=== PATIENT | male | born 1965 | race Caucasian/White ===

== ENCOUNTER 2018-03-22 12:27 | Observation (INO) | payer SELFPAY ==
[2018-03-22 13:12] LABS: #Eosinphils 0.2 thou/uL (0.0-0.7); #Lymphocytes 2.3 thou/uL (1.20-3.40); #Monocytes 0.8 thou/uL (0.11-0.59); #Neutrophils 6.9 thou/uL (1.40-6.50); %Lymphocytes 22.1 % (21.0-51.0); %Monocytes 8.2 % (0.0-10.0); %Neutrophils 67.8 % (42.0-75.0); Hemoglobin 15.9 g/dL (14.0-18.0); Mean Corpuscular HGB CONC 34.8 g/dL (32.0-36.0); Mean Corpuscular Hemoglobin 31.3 pg (27.0-31.0); Mean Platelet Volume 6.8 fL (7.4-10.4); Platelet Count 248 thou/uL (130-400); RBC Distribution Width 12.2 % (11.5-14.5); Red Blood Cell (RBC) Count 5.07 mill/uL (4.70-6.10); White Blood Cell (WBC) Count 10.2 thou/uL (4.8-10.8)
--- NOTE | 2018-03-22 13:18 | RAD ---
AP VIEW CHEST: Date: 03/22/18 HISTORY: Chest pain. FINDINGS: AP view of chest obtained and demonstrates EKG leads seen over the chest. The lungs are well aerated. No evidence of active intrathoracic disease seen. No evidence of effusions, pneumonia, or pneumothor ax seen. IMPRESSION: Unremarkable AP view chest. POS: [facility]
[2018-03-22 13:27] LABS: ALT (SGPT) 48 U/L (8-55); AST (SGOT) 30 U/L (5-34); Albumin 4.2 g/dL (3.5-5.0); Alkaline Phosphatase 138 U/L (40-150); Anion Gap 13 mmol/L (10-20); BUN (Urea Nitrogen) 22 mg/dL (8.4-25.7); Bilirubin, Total 0.3 mg/dL (0.2-1.2); CK (CPK) 137 U/L (30-200); Calc. Creatinine Clearance 0 mL/min (70-130); Calcium 9.5 mg/dL (7.8-10.44); Carbon Dioxide 25 mmol/L (22-29); Chloride 105 mmol/L (98-107); Estimated GFR-MDRD 71; Globulin 3.2 g/dL (2.4-3.5); Glucose 151 mg/dL (70-105); Protein, Total 7.4 g/dL (6.0-8.3); Sodium 139 mmol/L (136-145)
[2018-03-22 13:30] LABS: CKMB 1.5 ng/mL (0-6.6); Troponin I Less than 0.010 ng/mL (< 0.028)
[2018-03-22] MEDS ORDERED: Nitroglycerin 0.4 MG TAB (25 Tab Bottle) SL PRN (16:06)
[2018-03-22] MEDS ORDERED: Acetaminophen 325 MG TAB PO PRN (16:06)
[2018-03-22] MEDS ORDERED: Ondansetron ORAL SOLN. 4 MG/5 ML UDCUP PO PRN (16:06)
--- NOTE | 2018-03-22 16:17 | PDOC.FPRHP ---
- History of Present Illness Chief Complaint: SOB & Chest Pain History of Present Illness: Mr Sams is a 52yo male with pmh of HTN presenting with shortness of breath and chest pain for 1 month. Over the last month he has had sharp chest pain and diaphoresis with exertion 5 times. Pain radiates to his neck from his sternum and resolves with rest. Shortness of breath is also with exertion and over the last month has taken progressively longer to resolve with rest. He also feels severely fatigued after these episodes. He now has SOB with no activity. Endorses orthopnea and Paroxysmal nocturnal dyspnea. Sleeps in the recliner with a pillow behind him. Reports 40lb wt gain in the last year do to poor diet. Endorses some leg swelling. He went to [facility] in [place] 03/13 for same symptoms and 03/14 he went to [facility]. There, they diagnosed him with HTN and sent him home on Lisinopril 10mg and Lasix 20mg. Denies fever, chills, cough, vomiting. ED Course: EKG- NSR, CXR- no acute abnormalities. 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 Smokes 1-1.5pks/day. Denies alcohol use. Past hx of methamphetamine use. - Review of Systems General: reports: weight/appetite/sleep changes (40lb wt gain in last year), fatigue. denies: fever/chills ENT: denies: nasal congestion, rhinorrhea Respiratory: reports: cough, shortness of breath Cardiovascular: reports: chest pain, edema, paroxysmal nocturnal dyspnea, orthopnea. denies: palpitation Gastrointestinal: reports: diarrhea, constipation. denies: nausea, vomiting, abdominal pain Genitourinary: reports: polyuria. denies: incontinence Skin: reports: rashes. denies: lesions Musculoskeletal: denies: pain, swelling Neurological: reports: numbness (in feet). denies: weakness - Vital signs BP: 129/76 HR: 94 RR: 16 Tmax: 97.9 Pox: 93% on RA Wt: 145.15kg - Physical Exam Constitutional: NAD, awake, alert and oriented HEENT: normocephalic and atraumatic, PERRLA, MMM, oropharynx clear Neck: trachea midline, other (JVD present) Heart: RRR, other (distant heart sounds) Lungs: CTAB Abdomen: soft, non-tender, bowel sounds present Musculoskeletal: normal structure, ROM grossly normal Neurological: normal sensation (in feet to light touch) Skin: capillary refill <2 seconds, other (venous stasis present bilateral lower legs) Psychiatric: normal mood and affect, good judgment and insight FMR H&P: Results - Labs Result Diagrams: 03/22/18 12:52 03/22/18 12:52 Lab results: WBC 10.2 thou/uL (4.8-10.8) 03/22/18 12:52 Hgb 15.9 g/dL (14.0-18.0) 03/22/18 12:52 Hct 45.6 % (42.0-52.0) 03/22/18 12:52 MCV 90.0 fL (78.0-98.0) 03/22/18 12:52 Plt Count 248 thou/uL (130-400) 03/22/18 12:52 Neutrophils % 67.8 % (42.0-75.0) 03/22/18 12:52 Sodium 139 mmol/L (136-145) 03/22/18 12:52 Potassium 4.0 mmol/L (3.5-5.1) 03/22/18 12:52 Chloride 105 mmol/L (98-107) 03/22/18 12:52 Carbon Dioxide 25 mmol/L (22-29) 03/22/18 12:52 BUN 22 mg/dL (8.4-25.7) 03/22/18 12:52 Creatinine 1.09 mg/dL (0.6-1.3) 03/22/18 12:52 Glucose 151 mg/dL (70-105) H 03/22/18 12:52 Calcium 9.5 mg/dL (7.8-10.44) 03/22/18 12:52 Total Bilirubin 0.3 mg/dL (0.2-1.2) 03/22/18 12:52 AST 30 U/L (5-34) 03/22/18 12:52 ALT 48 U/L (8-55) 03/22/18 12:52 Alkaline Phosphatase 138 U/L (40-150) 03/22/18 12:52 Creatine Kinase 137 U/L (30-200) 03/22/18 12:52 CK-MB (CK-2) 1.5 ng/mL (0-6.6) 03/22/18 12:52 Serum Total Protein 7.4 g/dL (6.0-8.3) 03/22/18 12:52 Albumin 4.2 g/dL (3.5-5.0) 03/22/18 12:52 - EKG Interpretation EKG: NSR with questionable Q waves in V1-V3 per ED report - Radiology Interpretation Chest x-ray Status: report reviewed by me Additional comment: no acute abnormalities FMR H&P: A/P - Problem List (1) Shortness of breath Current Visit: Yes Status: Acute Code(s): R06.02 - SHORTNESS OF BREATH (2) Stable angina Current Visit: Yes Status: Acute Code(s): I20.8 - OTHER FORMS OF ANGINA PECTORIS (3) Obesity Current Visit: Yes Status: Acute Code(s): E66.9 - OBESITY, UNSPECIFIED (4) Tobacco abuse Current Visit: Yes Status: Acute Code(s): Z72.0 - TOBACCO USE (5) HTN (hypertension) Current Visit: Yes Status: Chronic Code(s): I10 - ESSENTIAL (PRIMARY) HYPERTENSION (6) Chest pain Current Visit: Yes Status: Acute Code(s): R07.9 - CHEST PAIN, UNSPECIFIED (7) Hyperglycemia Current Visit: Yes Status: Acute Code(s): R73.9 - HYPERGLYCEMIA, UNSPECIFIED - Plan 52yo male presents with SOB and chest pain. 1. 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 Suspected CHF - As above 3. HTN - Initial BP 126/76 - Hold lisinopril 10mg for now 4. Tobacco Abuse - Nicotine Patch 21mg - [place] regarding smoking cessation 5. Hx of Methamphetamine use - UDS 6. 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 Pt notes he has recently began experiencing trouble walking longer distances, endorsing CRAWFORD, orthopnea, PND, chest discomfort, lower extremity edema. Pt states his symptoms improve with rest. Pt denies cough, snoring, palpitations, NVD, sick contacts. Pt notes he has visited the ER twice over the last 2 weeks and was discharged home on lisinopril and lasix. He was told he may have an enlarged heart. Pt has a history of tobacco and polysubstance abuse, noting he still smokes 1 ppd. He denies any personal history of heart disease but does endorse a family history. He has not seen a PCP in the last few years. - Pertinent findings Gen: morbidly obese, NAD CV: RRR, somewhat distant heart sounds 2/2 body habitus, no MMR, no displaced PMI, no chest wall TTP Resp: good effort, nonlabored, CTAB Abd: obese, BS+, NTTP Ext: trace edema BL, venous stasis skin changes BL LE - Plan Date/Time: 03/22/18 1616 I, Lloyd Haque MD, PGY-3, have evaluated this patient and agree with findings/ plan as outlined by undergraduate intern resident. Pertinent changes/additions are listed here. 1. Typical chest pain 2/2 stable angina, concerning for suspected CHF -Admit to telemetry observation and rule out ACS. Trend cardiac enzymes. Risk factor work up with BNP, UDS, TSH, A1c, FLP. Start on ASA and place nitro SL PRN. -Pt has HEART score of 4, will work up with stress test in AM. NPO at midnight. -With CRAWFORD, orthopnea, and hx of cardiomegaly, will order TTE. Strict I/O's. -Lovenox for VTE prophylaxis. 2. Suspected CHF -per above. 3. HTN -Normotensive in ER without medication -Pt reportedly takes Lisinopril 10 mg daily at home. Likely restart pending workup and monitoring of BP. 4. Tobacco abuse -Nicotine patch 5. History of polysubstance abuse -UDS FULL code PPx: Lovenox for VTE, no GI indicated disposition: Admit to telemetry observation for anticipated length of stay < 2 midnights. Attending Addendum - Attending Addendum Date/Time: 03/22/182014 I personally evaluated the patient and discussed the management with Dr. Swanson and Dr. Haque I agree with the History, Examination, Assessment and Plan documented above with any addition or exceptions noted below. 52 yo male with CV risk factors presents for chest pain and CRAWFORD evaluation. Will place in obs. CP of typical nature. Occurring with activity. Associated with CRAWFORD. Trend EKG and CE throughout the night. Stress and ECHO in AM. Evaluate other risks factors and treat accordingly. Needs sleep apnea evaluation. SOB/CRAWFORD also appears to be complicated by underlying COPD. Will start trial of breathing treatments. Will need PFTs outpatient. Clara
[2018-03-22 16:26] VITALS: BMI 41.3
[2018-03-22 16:44] LABS: Hemoglobin A1c 5.9 % (4.0-6.0)
[2018-03-22 16:54] LABS: Troponin I Less than 0.010 ng/mL (< 0.028)
[2018-03-22] MEDS: Nicotine 21 MG PATCH TD SCH (17:46)
[2018-03-22 18:54] LABS: Amphetamine Not Detected (NotDetected); Barbiturates Screen Not Detected (NotDetected); Benzodiazepine Screen Not Detected (NotDetected); Cocaine Metabolite Screen Not Detected (NotDetected); Medtox Control Line Valid? VALID (VALID); Medtox Reader # READER 1; Methadone Not Detected (NotDetected); Methamphetamine Not Detected (NotDetected); Opiate Screen Not Detected (NotDetected); Oxycodone Screen Not Detected (NotDetected); Phencyclidine (PCP) Not Detected (NotDetected); THC/Cannabinoid Screen Not Detected (NotDetected); Tricyclic Screen Not Detected (NotDetected)
[2018-03-22 20:14] LABS: Troponin I Less than 0.010 ng/mL (< 0.028)
[2018-03-23 04:53] LABS: Anion Gap 12 mmol/L (10-20); BUN (Urea Nitrogen) 23 mg/dL (8.4-25.7); Calc. Creatinine Clearance 227 mL/min (70-130); Calcium 9.1 mg/dL (7.8-10.44); Carbon Dioxide 27 mmol/L (22-29); Cardiac Risk 5.6 (Less than 4.5); Chloride 105 mmol/L (98-107); Cholesterol 192 mg/dl (< 200 Desired); Estimated GFR-MDRD Greater than 90; Glucose 125 mg/dL (70-105); HDL Cholesterol 34 mg/dL (>60 Neg Risk); LDL Cholesterol, Calculated 122 mg/dL; Potassium 4.1 mmol/L (3.5-5.1); Sodium 140 mmol/L (136-145); Triglycerides 179 mg/dL (Less than 150)
--- NOTE | 2018-03-23 05:29 | PDOC.FM ---
- Subjective Subjective: Mr Sams is a 52yo male who presented with typical chest pain and SOB. Today he is doing well, denies Chest pain, endorses SOB with rest. The duoneb nebulizer last night did not improve his SOB. Also reported the chest pain he experienced over the last month felt "like someone was sitting on my chest." Denies lightheadedness, n/v/d. - Objective MAR Reviewed: Yes Vital Signs & Weight: Vital Signs (12 hours) Temp Pulse Resp BP Pulse Ox 03/23/18 04:10 97.7 F 63 16 123/69 95 03/23/18 00:38 91 L 03/22/18 23:07 98.2 F 77 16 129/60 94 L 03/22/18 21:33 81 12 93 L 03/22/18 20:18 98.7 F 83 20 03/22/18 19:09 98.7 F 83 20 128/63 93 L Weight Weight 144.877 kg I&O: 03/21/18 03/22/18 03/23/18 06:59 06:59 06:59 Intake Total 660 Output Total 525 Balance 135 Result Diagrams: 03/22/18 12:52 03/23/18 04:14 <Madai Swanson - Last Filed: 03/23/18 13:57> - Objective Vital Signs & Weight: Vital Signs (12 hours) Temp Pulse Resp BP Pulse Ox 03/23/18 12:16 97.8 F 74 20 141/67 H 95 Weight Weight 144.877 kg I&O: 03/22/18 03/23/18 03/24/18 06:59 06:59 06:59 Intake Total 660 353 Output Total 525 400 Balance 135 -47 Result Diagrams: 03/22/18 12:52 03/23/18 04:14 <Irvin Lopez - Last Filed: 03/23/18 22:01> Phys Exam - Physical Examination Constitutional: NAD HEENT: moist MMs Respiratory: clear to auscultation bilateral Cardiovascular: RRR Musculoskeletal: pulses present, edema present Neurological: moves all 4 limbs Psychiatric: normal affect, A&O x 3 Skin: cap refill <2 seconds <Madai Swanson - Last Filed: 03/23/18 13:57> Dx/Plan (1) Shortness of breath Code(s): R06.02 - SHORTNESS OF BREATH Status: Acute (2) Stable angina Code(s): I20.8 - OTHER FORMS OF ANGINA PECTORIS Status: Acute (3) Obesity Code(s): E66.9 - OBESITY, UNSPECIFIED Status: Acute (4) Tobacco abuse Code(s): Z72.0 - TOBACCO USE Status: Acute (5) HTN (hypertension) Code(s): I10 - ESSENTIAL (PRIMARY) HYPERTENSION Status: Chronic (6) Chest pain Code(s): R07.9 - CHEST PAIN, UNSPECIFIED Status: Acute (7) Hyperglycemia Code(s): R73.9 - HYPERGLYCEMIA, UNSPECIFIED Status: Acute - Plan Plan: 52yo male presents with SOB and chest pain. 1. 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 Will need PFTs outpatient. - Cont Duonebs PRN - Consulted Cardiology ([facility]) 2. Suspected CHF - As above 3. HTN - Initial BP 126/76 - Hold lisinopril 10mg for now 4. Tobacco Abuse - Nicotine Patch 21mg - [place] regarding smoking cessation 5. Hx of Methamphetamine use - UDS neg 6. Numbness in feet/Polyuria - HgbA1c 5.9 Code Status: Full DVT ppx: SCDs & Lovenox GI ppx: None indicated at this time Disposition/LOS: Plan to discharge home in <2 midnights <Madai Swanson - Last Filed: 03/23/18 13:57> Attending Addendum - Attending Addendum Date/Time: 03/23/18 2200 I personally evaluated the patient and discussed the management with Dr. Swanson and team. I agree with and repeated the History, Examination, Assessment and Plan documented above with any addition or exceptions noted below. The story sounds like quite typical angina that has been progressive. Will go ahead and call cardiology. <Irvin Lopez - Last Filed: 03/23/18 22:01>
[2018-03-23] MEDS ORDERED: Enoxaparin Sodium 40 MG/0.4 ML SYRINGE SC SCH (09:00)
[2018-03-23 12:18] VITALS: BP 141/67; TEMP 97.8
[2018-03-23] MEDS ORDERED: Lidocaine 1% (PF) 30 ML VIAL ONE (13:55)
[2018-03-23] MEDS ORDERED: Communication Order-Pharmacy FS SCH (14:00)
[2018-03-23] MEDS ORDERED: Sodium Chloride 0.9% 1,000 ML IV SCH ×2 (14:00→15:00)
--- NOTE | 2018-03-23 14:21 | CON ---
DATE OF CONSULTATION: 03/23/2018 REASON FOR CONSULTATION: Chest pain. HISTORY OF PRESENT ILLNESS: Mr. Sams is a very pleasant 52-year-old gentleman with a past history of tobacco abuse and hypertension who recently presented with chest pain and shortness of breath. He states shortness breath has been occurring for the last several weeks. His chest pain he does have intermittently. His chest pain was described as moderate to severe. It lasted 20 minutes. He state s he had associated nausea with no vomiting. He also had neck and jaw radiation. His recent stress study, stress portion appeared abnormal. PAST MEDICAL HISTORY: Hypertension. PAST SURGICAL HISTORY: Appendectomy, hysterectomy. SOCIAL HISTORY: Positive tobacco use. He is currently a trucker hand. No current alcohol use. Pre vious methamphetamine use. REVIEW OF SYSTEMS: Ten-point review of systems is reviewed as above, otherwise negative. PHYSICAL EXAMINATION: VITAL SIGNS: Blood pressure 141/67, pulse 84, temperature 97.8. GENERAL: Patient is a pleasant male who is in no acute distress. The patient appears older than his stated age. NEUROLOGIC: The patient is alert and oriented times 3 with no focal neurologic deficits. HEENT: Sclerae without icterus. Mouth has moist mucous membranes with normal pallor. NECK: No JVD. Carotid upstroke brisk. No bruits bilaterally. LUNGS: Clear to auscultation with unlabored respirations. BACK: No scoliosis or kyphosis. CARDIAC: Regular rate and rhythm with normal S1 and S2. No S3 or S4 noted. No significant rubs, mur murs, thrills, or gallops noted throughout the precordium. PMI is not displaced. There is no parast ernal heave. ABDOMEN: Soft, nontender, nondistended. No peritoneal signs present. No hepatosplenomegaly. No abn ormal striae. EXTREMITIES: 2+ femoral and 2+ dorsalis pedis pulses. No cyanosis, clubbing, or edema. SKIN: No gross abnormalities. PERTINENT LABS: CK and troponin negative. BNP of 12. EKG: Normal sinus rhythm, nonspecific change s. IMPRESSION: 1. Chest pain. 2. Tobacco abuse. 3. Hypertension. RECOMMENDATIONS: Mr. Sams's symptoms certainly suggest angina. I discussed proceeding with rojas ry angiography versus continued stress study. His second portion will be done tomorrow. I have disc ussed risks and benefits of both, he has opted to proceed with a coronary angiography. His family wa s present during the discussion. I discussed the procedure in full detail with Mr. Sams. The risk s included, but are not limited to the following: , stroke, KS, need for emergency surgery, los s of limb, bleeding, and infection, as well as a reaction to the dye causing kidney failure and needi ng long-term dialysis. I also discussed the risks of PCI to include all of the above including coron gill dissection and perforation in addition to acute stent thrombosis and restenosis. All questions a bout the procedure were answered. Given the above, the patient agreed to proceed with coronary angio graphy and possible PCI. I also discussed drug-coated versus nondrug stent placement. He will proceed with drug-coated stent placement if needed. Further recommendations pending the above.
[2018-03-23] MEDS ORDERED: Fentanyl 100 MCG/2 ML VIAL ONE (14:26)
[2018-03-23] MEDS ORDERED: Midazolam HCl 2 mg/2 ml Vial ONE (14:26)
[2018-03-23] MEDS ORDERED: Nitroglycerin 100MG/250ML BOT 250 ML ONE (14:27)
[2018-03-23] MEDS ORDERED: Verapamil 5 MG/2 ML VIAL ONE (14:27)
[2018-03-23] MEDS ORDERED: Heparin 10,000 UNITS/1 ML VIAL ONE (14:27)
[2018-03-23] MEDS ORDERED: Regadenoson 0.4 MG/5 ML SYRINGE ONE (14:46)
[2018-03-23] MEDS ORDERED: Acetaminophen/Codeine 30-300mg Tablet PO PRN ×2 (14:57)
[2018-03-23] MEDS ORDERED: traMADol HCl 50 MG TAB PO PRN (14:57)
[2018-03-23] MEDS ORDERED: Nitroglycerin 0.4 MG TAB (25 Tab Bottle) SL PRN (14:57)
[2018-03-23] MEDS ORDERED: Sodium Chloride 0.9% 200 ML IV SCH (15:00)
--- NOTE | 2018-03-23 15:57 | NM ---
MYOCARDIAL PERFUSION EVALUATION STRESS ONLY 03/23/18 INDICATION: Chest pain, hypertension, smoking. RADIOPHARMACEUTICAL: 27 millicuries of technetium 99m Sestamibi IV. FINDINGS: The patient did not undergo rest imagines. This is a stress only examination. The patient went to the Catheterization Lab following this stress examination. On the stress examination, there is a moderate sized region of moderate reduced activity involving th e distal inferior wall and apex. There was normal wall motion and thickening. Estimated LVEF is 59%. There was mild left ventricular dilatation present. IMPRESSION: 1. Mild sized region of moderate reduced activity involving the inferior wall of the left ventri andrea and apex. This may be related to soft tissue attenuation. Ischemia cannot be entirely excluded ba sed on stress only images. 2. Left ventricular dilatation. 3. Estimated LVEF of 59%. POS: [facility]
[2018-03-23] MEDS: Nicotine 21 MG PATCH TD SCH ×2 (18:28→19:08)
--- NOTE | 2018-03-24 03:00 | DIS-2 ---
DATE OF ADMISSION: 03/22/2018 DATE OF DISCHARGE: 03/23/2018 RESIDENT: Madai Swanson MD ADMITTING ATTENDING: Giovana Good M.D. DISCHARGE ATTENDING: Sagrario Dobson MD CONSULTATIONS: Cardiology PROCEDURES: Had a stress test that was abnormal and a catheterization that was normal PRIMARY DIAGNOSES: 1. Typical chest pain secondary to stable angina concerning for congestive heart failure. 2. Stable angina. 3. Obesity. 4. Tobacco abuse. 5. Hypertension. 6. Hyperglycemia. DISCHARGE MEDICATIONS: 1. Lisinopril 10 mg daily. 2. Lasix 20 mg daily. 3. Aspirin 81 mg daily. 4. Nitro 0.4 mg sublingual. 5. Atorvastatin 80mg HS HISTORY OF PRESENT ILLNESS AND HOSPITAL COURSE: Mr. Sams is a 52-year-old male with a pmh of hypertension presenting with shortness of breath and chest pain for 1 month. Over the last month, he has had typical chest pain symptoms: "pressure like someone is sitting on his chest" with exertion and diaphoresis. Pain radiates to his neck and resolves with rest. Shortness of breath is also with exertion and has progressively taken longer to resolve with rest. Endorsed orthopnea, paroxysmal nocturnal dyspnea, leg edema and a 40-pound weight gain over the last year that he attributed to poor diet. He had sought care to outside hospitals 03/13 & 03/14, the last hospital diagnosed him with hypertension and sent him home on lisinopril 10 mg and Lasix 20 mg. At admission he had symptoms concerning for CAD and CHF. Echo that showed EF 50 -55%, E/A flow reversal noted, suggestive of diastolic dysfunction, mild MR & TR. Cardiac stress test showed some mild reduced activity involving the inferior wall of the left ventricle and apex and they could not rule out ischemia and left ventricular dilation with an EF of 59%. He then was taken to the field laboratory operator by Cardiology and his catheterization was normal. SOB also did not improve with Duonebs. He was sent home and instructed to follow up with Cardiology. He weight gain, fatigue and poor sleep is concerning for sleep apnea. Although he denied night time snoring he could benefit from a sleep study. With his long history of smoking, flattened diaphragm, and shortness of breath he would also benefit from a COPD workup with PFTs. DISPOSITION: Stable. DISCHARGE INSTRUCTIONS: 1. Location: Home. 2. Diet: Heart healthy, low sodium. 3. Activity: No limitations. Follow up with Cardiology in clinic. NITIN
== END 2018-03-23 19:37 | disposition home or self-care (01) ==
LOC: ERS 12:27 → 2SW 15:05
PROVIDERS: ADMIT Family Medicine; ATTEND Family Medicine
PROC: 4A023N7 Measurement of Cardiac Sampling and Pressure, Left Heart, Percutaneous Approach (ICD-10-PCS; principal; 2018-03-23)
PROC: B2111ZZ Fluoroscopy of Multiple Coronary Arteries using Low Osmolar Contrast (ICD-10-PCS; 2018-03-23)
DX: I20.8 Other forms of angina pectoris (principal); R06.02 Shortness of breath; I10 Essential (primary) hypertension; F17.210 Nicotine dependence, cigarettes, uncomplicated; R73.9 Hyperglycemia, unspecified; E66.01 Morbid (severe) obesity due to excess calories; Z68.41 Body mass index [BMI] 40.0-44.9, adult; Z79.899 Other long term (current) drug therapy
CPT/HCPCS: 36415; 71045; 78452; 80048; 80053; 80061; 80306; 82553; 83036; 83880; 84443; 84484; 85025; 85379; 90471; 90732; 93005; 93017; 93306; 93458; 94640; 94760; 99152; A9500; C1769; G0009; G0378; J1644; J1650; J2001; J2250; J2785; J3010; J7620

== ENCOUNTER 2022-12-14 11:40 | Observation (INO) | payer BC, SELFPAY ==
[~2022-12-14 11:40] MED LIST: Iopamidol-370 76% 500 ML MDV (1 ML CHARGE) ONE
[2022-12-14 12:46] LABS: #Eosinphils 0.2 thou/uL (0.0-0.7); #Lymphocytes 3.2 thou/uL (1.20-3.40); #Neutrophils 5.6 thou/uL (1.40-6.50); %Basophils 0.5 % (0.0-1.0); %Eosinophils 2.1 % (0.0-10.0); %Lymphocytes 31.9 % (21.0-51.0); %Monocytes 9.4 % (0.0-10.0); %Neutrophils 56.1 % (42.0-75.0); Hemoglobin 16.2 g/dL (14.0-18.0); Mean Corpuscular HGB CONC 32.3 g/dL (32.0-36.0); Mean Corpuscular Hemoglobin 29.9 pg (27.0-31.0); Mean Corpuscular Volume 92.7 fl (78.0-98.0); Mean Platelet Volume 7.3 fL (7.4-10.4); Platelet Count 221 10x3/uL (130-400); RBC Distribution Width 12.7 % (11.5-14.5); Red Blood Cell (RBC) Count 5.43 mill/uL (4.70-6.10)
[2022-12-14 13:17] LABS: ALT (SGPT) 43 U/L (8-55); AST (SGOT) 29 U/L (5-34); Albumin 4.5 g/dL (3.5-5.0); Alkaline Phosphatase 127 U/L (40-110); Anion Gap 13 mmol/L (10-20); BUN (Urea Nitrogen) 21 mg/dL (8.4-25.7); Bilirubin, Total 0.3 mg/dL (0.2-1.2); Calc. Creatinine Clearance 0 mL/min (70-130); Calcium 9.8 mg/dL (7.8-10.44); Carbon Dioxide 25 mmol/L (22-29); Chloride 105 mmol/L (98-107); Estimated GFR 100; Globulin 2.9 g/dL (2.4-3.5); Glucose 108 mg/dL (70-105); Potassium 4.4 mmol/L (3.5-5.1); Protein, Total 7.4 g/dL (6.0-8.3); Sodium 139 mmol/L (136-145)
[2022-12-14] MEDS ORDERED: Aspirin Chewable 81 MG TAB ONE (14:16)
[2022-12-14 20:22] LABS: Troponin I Less than 0.010 ng/mL (< 0.028)
[2022-12-14] MEDS ORDERED: Ondansetron PF 4 MG/2 ML Vial IVP PRN (22:23)
[2022-12-14] MEDS ORDERED: Dextrose 50% Abboject 50 ML SYRINGE SLOW IVP PRN (22:47)
[2022-12-14] MEDS ORDERED: HumaLOG 300 UNITS/3 ML VIAL SC PRN ×2 (22:47)
[2022-12-14] MEDS ORDERED: Dextrose 5% in Water 1,000 ML IV PRN (22:47)
[2022-12-14 22:57] LABS: Troponin I Less than 0.010 ng/mL (< 0.028)
[2022-12-15 07:46] LABS: #Basophils 0.1 thou/uL (0.0-0.2); #Eosinphils 0.2 thou/uL (0.0-0.7); #Lymphocytes 1.8 thou/uL (1.20-3.40); #Monocytes 0.7 thou/uL (0.11-0.59); #Neutrophils 4.1 thou/uL (1.40-6.50); %Basophils 0.8 % (0.0-1.0); %Eosinophils 2.8 % (0.0-10.0); %Lymphocytes 25.9 % (21.0-51.0); %Monocytes 10.5 % (0.0-10.0); Hemoglobin 15.8 g/dL (14.0-18.0); Mean Corpuscular HGB CONC 32.2 g/dL (32.0-36.0); Mean Corpuscular Volume 92.9 fl (78.0-98.0); Mean Platelet Volume 7.2 fL (7.4-10.4); Platelet Count 205 10x3/uL (130-400); RBC Distribution Width 12.6 % (11.5-14.5); Red Blood Cell (RBC) Count 5.26 mill/uL (4.70-6.10); White Blood Cell (WBC) Count 6.9 10x3/uL (4.8-10.8)
[2022-12-15 08:16] LABS: Anion Gap 11 mmol/L (10-20); BUN (Urea Nitrogen) 19 mg/dL (8.4-25.7); Calc. Creatinine Clearance 209 mL/min (70-130); Calcium 8.9 mg/dL (7.8-10.44); Carbon Dioxide 27 mmol/L (22-29); Chloride 104 mmol/L (98-107); Estimated GFR 102; Glucose 184 mg/dL (70-105); Potassium 4.2 mmol/L (3.5-5.1); Sodium 138 mmol/L (136-145)
[2022-12-15] MEDS ORDERED: HumaLOG 300 UNITS/3 ML VIAL ONE (11:25)
[2022-12-15 11:33] VITALS: BP 129/91; TEMP 98.6
[2022-12-15] MEDS ORDERED: metFORMIN 500 MG TAB PO SCH (17:00)
[2022-12-15] MEDS ORDERED: Carvedilol 25 MG TAB PO SCH (21:00)
[2022-12-16] MEDS ORDERED: glipiZIDE 5 MG TAB PO SCH (09:00)
== END 2022-12-15 11:33 | disposition home or self-care (01) ==
LOC: ERS 11:40 → ERHOLD 18:53
PROVIDERS: ADMIT Family Medicine; ATTEND Family Medicine
DX: J39.2 Other diseases of pharynx (principal); R07.89 Other chest pain; I10 Essential (primary) hypertension; F17.210 Nicotine dependence, cigarettes, uncomplicated; E11.9 Type 2 diabetes mellitus without complications; I48.20 Chronic atrial fibrillation, unspecified; J35.3 Hypertrophy of tonsils with hypertrophy of adenoids; Z79.84 Long term (current) use of oral hypoglycemic drugs; Z79.899 Other long term (current) drug therapy
CPT/HCPCS: 36415; 36416; 70450; 70491; 71045; 80048; 80053; 83880; 84484; 85025; 87081; 87430; 93005; G0378; J1650; J1815; Q9967

== ENCOUNTER 2022-12-23 06:55 | Day surgery (SDC) | payer BC ==
[2022-12-21 13:50] VITALS: BMI 42.3
[2022-12-23] MEDS ORDERED: EPINEPHrine 1 MG/ML AMP ONE (09:43)
[2022-12-23] MEDS ORDERED: fentaNYL 50 mcg/mL 1 mL Vial ONE ×2 (09:44)
[2022-12-23] MEDS ORDERED: Famotidine/PF 20 mg/2ml Vial ONE (09:44)
[2022-12-23] MEDS ORDERED: Succinylcholine Chloride 100 MG/5 ML SYRINGE FS ONE (11:06)
[2022-12-23] MEDS ORDERED: Ondansetron PF 4 MG/2 ML Vial ONE (11:06)
[2022-12-23] MEDS ORDERED: Lidocaine 1% PF 5 ML VIAL ONE (11:06)
[2022-12-23] MEDS ORDERED: Dexamethasone 20 MG/5 ML VIAL ONE (11:06)
[2022-12-23] MEDS ORDERED: PROPOFOL 200 MG/20 ML VIAL ONE (11:06)
== END 2022-12-23 12:03 | disposition home or self-care (01) ==
LOC: SDC 06:55
PROVIDERS: ATTEND Otolaryngology Plastic Surgery within the Head & Neck
PROC: 0CBT8ZX Excision of Right Vocal Cord, Via Natural or Artificial Opening Endoscopic, Diagnostic (ICD-10-PCS; principal; 2022-12-23)
DX: J38.3 Other diseases of vocal cords (principal); I45.10 Unspecified right bundle-branch block; I10 Essential (primary) hypertension; E11.9 Type 2 diabetes mellitus without complications; Z79.01 Long term (current) use of anticoagulants; Z79.84 Long term (current) use of oral hypoglycemic drugs; Z79.899 Other long term (current) drug therapy
CPT/HCPCS: 88305; 93005; 93010; J0171; J1100; J2405; J2704; J3010; S0028

== ENCOUNTER 2025-04-13 12:55 | Observation (INO) | payer BC ==
[2025-04-13 15:23] LABS: #Basophils 0.05 10x3/uL (0.0-0.2); #Eosinophils 0.15 10x3/uL (0.0-0.7); #Monocytes 0.98 10x3/uL (0.11-0.59); #Neutrophils 8.46 10x3/uL (1.40-6.50); %Basophils 0.4 % (0.0-1.0); %Eosinophils 1.2 % (0.0-10.0); %Lymphocytes 22.3 % (21.0-51.0); %Monocytes 7.9 % (0.0-10.0); %Neutrophils 67.7 % (42.0-75.0); Hematocrit 49.0 % (42.0-52.0); Hemoglobin 17.0 g/dL (14.0-18.0); Mean Corpuscular Hemoglobin 30.9 pg (27.0-31.0); Mean Corpuscular Volume 88.9 fL (78.0-98.0); Platelet Count 219 10x3/uL (130-400); Red Blood Cell (RBC) Count 5.51 mill/uL (4.70-6.10); White Blood Cell (WBC) Count 12.48 10x3/uL (4.8-10.8)
[2025-04-13 15:31] LABS: ALT (SGPT) 31 U/L (Less than 45); AST (SGOT) 31 U/L (11-34); Albumin 4.4 g/dL (3.1-4.5); Alkaline Phosphatase 97 U/L (40-110); Anion Gap 14 mmol/L (10-20); BUN (Urea Nitrogen) 22 mg/dL (8.4-25.7); Bilirubin, Total 0.6 mg/dL (0.3-1.2); Calc. Creatinine Clearance 0 mL/min (70-130); Calcium 9.2 mg/dL (7.8-10.44); Carbon Dioxide 22 mmol/L (22-29); Chloride 107 mmol/L (98-107); Globulin 3.0 g/dL (2.4-3.5); Glucose 88 mg/dL (70-105); Potassium 4.2 mmol/L (3.5-5.1); Sodium 139 mmol/L (136-145)
[2025-04-13 15:36] LABS: Troponin I Less than 0.010 ng/mL (< 0.028)
[2025-04-13] MEDS ORDERED: Acetaminophen 325 MG TAB PO PRN (18:05)
[2025-04-13 19:55] LABS: Troponin I Less than 0.010 ng/mL (< 0.028)
[2025-04-13 21:59] VITALS: BMI 35.3
[2025-04-14 05:21] LABS: #Basophils 0.06 10x3/uL (0.0-0.2); #Eosinophils 0.16 10x3/uL (0.0-0.7); #Monocytes 0.89 10x3/uL (0.11-0.59); #Neutrophils 4.60 10x3/uL (1.40-6.50); %Basophils 0.7 % (0.0-1.0); %Eosinophils 1.9 % (0.0-10.0); %Lymphocytes 33.6 % (21.0-51.0); %Monocytes 10.3 % (0.0-10.0); %Neutrophils 53.2 % (42.0-75.0); Hematocrit 44.6 % (42.0-52.0); Hemoglobin 15.3 g/dL (14.0-18.0); Mean Corpuscular Hemoglobin 30.9 pg (27.0-31.0); Mean Corpuscular Volume 90.1 fL (78.0-98.0); Platelet Count 183 10x3/uL (130-400); Red Blood Cell (RBC) Count 4.95 mill/uL (4.70-6.10); White Blood Cell (WBC) Count 8.64 10x3/uL (4.8-10.8)
[2025-04-14 05:41] LABS: Anion Gap 13 mmol/L (10-20); BUN (Urea Nitrogen) 25 mg/dL (8.4-25.7); Calc. Creatinine Clearance 178 mL/min (70-130); Calcium 8.7 mg/dL (7.8-10.44); Carbon Dioxide 24 mmol/L (22-29); Chloride 111 mmol/L (98-107); Glucose 85 mg/dL (70-105); Potassium 3.6 mmol/L (3.5-5.1); Sodium 144 mmol/L (136-145)
[2025-04-14] MEDS: Amiodarone 200 MG TAB PO SCH (10:32)
[2025-04-14 16:33] VITALS: BP 122/63; TEMP 98.2
== END 2025-04-14 18:12 | disposition home or self-care (01) ==
LOC: ERS 12:55 → ERHOLD 18:05 → 2NO 21:43
PROVIDERS: ADMIT Hospitalist; ATTEND Family Medicine
DX: R06.00 Dyspnea, unspecified (principal); E11.9 Type 2 diabetes mellitus without complications; I10 Essential (primary) hypertension; I48.91 Unspecified atrial fibrillation; Z79.01 Long term (current) use of anticoagulants; Z79.899 Other long term (current) drug therapy; Z79.85 Long-term (current) use of injectable non-insulin antidiabetic drugs
CPT/HCPCS: 36415; 71045; 71275; 80048; 80053; 83880; 84484; 85025; 93005; 93306; 94760; G0378; Q9967